=== PATIENT | male | born 1990 | race African-American/Black ===

== ENCOUNTER 2021-11-05 00:17 | Emergency (ER) | payer MEDICAID, OTHER ==
[~2021-11-05] VITALS: Ht 175.3 cm; Wt 83.0 kg
[2021-11-05 00:26] VITALS: BP 102/54
[2021-11-05] MEDS ORDERED: TETANUS, DIPHTHERIA, PERTUSSIS VAC/PF 0.5ML (>10YR OLD) IM ONE (00:45)
== END 2021-11-05 02:05 | disposition home or self-care (01) ==
LOC: ER 00:17
DX: S61.512A Laceration without foreign body of left wrist, initial encounter (principal); S61.511A Laceration without foreign body of right wrist, initial encounter; X58.XXXA Exposure to other specified factors, initial encounter; Y93.89 Activity, other specified; Y92.89 Other specified places as the place of occurrence of the external cause; Y99.8 Other external cause status
CPT/HCPCS: 12004; 90471; 90715; 99284; A4217

== ENCOUNTER 2022-04-30 21:58 | Emergency (ER) | payer MEDICAID ==
[~2022-04-30] VITALS: Ht 172.7 cm; Wt 80.0 kg
[2022-04-30 22:06] VITALS: BP 134/81
[2022-05-01] MEDS ORDERED: IBUP-2028 MT (00:49)
[2022-05-01] MEDS ORDERED: ACET-2708 PO (17:22)
== END 2022-05-01 00:39 | disposition home or self-care (01) ==
LOC: ER 21:58
DX: S93.491A Sprain of other ligament of right ankle, initial encounter (principal); X50.1XXA Overexertion from prolonged static or awkward postures, initial encounter; R03.0 Elevated blood-pressure reading, without diagnosis of hypertension; Y93.39 Activity, other involving climbing, rappelling and jumping off; Y92.89 Other specified places as the place of occurrence of the external cause
CPT/HCPCS: 73610; 73630; 99284

== ENCOUNTER 2022-05-01 12:54 | Emergency (ER) | payer MEDICAID ==
[~2022-05-01] VITALS: Ht 177.8 cm; Wt 90.0 kg
[~2022-05-01 12:54] MED LIST: IBUP-2028 MT
[2022-05-01 13:07] VITALS: BP 130/84
[2022-05-01] MEDS ORDERED: KETOROLAC 60MG/2ML VIAL IM STA (15:45)
[2022-05-01] MEDS ORDERED: ACET-2708 PO (17:22)
[2022-05-01] MEDS ORDERED: KETOROLAC 60MG/2ML VIAL IM SCH (18:15)
== END 2022-05-01 18:40 | disposition home or self-care (01) ==
LOC: ER 12:54
DX: S93.401A Sprain of unspecified ligament of right ankle, initial encounter (principal); Z98.890 Other specified postprocedural states; W17.89XA Other fall from one level to another, initial encounter; Y93.89 Activity, other specified; Y92.89 Other specified places as the place of occurrence of the external cause; Y99.8 Other external cause status
CPT/HCPCS: 73610; 96372; 99283; J1885